=== PATIENT | female | born 1955 | race Caucasian/White ===

== ENCOUNTER 2020-08-01 22:54 | Observation (INO) ==
[2020-08-01 23:38] LABS: Basophils # 0.1 10*3/uL (0.0-0.2); Basophils % 0.9 % (0.0-0.8); Eosinophils # 0.2 10*3/uL (0.0-0.87); Eosinophils % 1.8 % (0.00-10.9); Hematocrit 33.5 VOL% (35.7-47.0); Hemoglobin 10.8 GM/DL (12.0-16.0); Immature Granulocytes % 0.5 %; Immature Granulocytes Absolute 0.04 #; Lymphocytes # 3.3 10*3/uL (1.4-4.0); Lymphocytes % 38.5 % (21.3-54.2); Mean Corpuscular HGB Conc 32.2 GM/DL (32-36); Mean Corpuscular Volume 87.7 FL (87-102); Mean Platelet Volume 10.5 FL (9.6-12.0); Monocytes % 7.9 % (1.7-12.7); Neutrophils % 50.4 % (38.7-73.9); Platelet Count 247 T/CUMM (130-400); Red Blood Count 3.82 MC/CUMM (3.8-5.5); Red Cell Distribution Width 14.5 % (9.3-17.3); White Blood Count 8.4 T/CUMM (4-12)
[2020-08-01 23:55] LABS: Acetaminophen 2.3 UG/ML (10-30); Salicylate < 2.8 MG/DL (2.8-20)
[2020-08-01 23:58] LABS: Alanine Aminotransferase 22 U/L (13-56); Alkaline Phosphatase 87 U/L (45-117); Aspartate Amino Transferase 18 U/L (0-37); Bilirubin,Total < 0.39 MG/DL (0.2-1.0); Blood Urea Nitrogen 38 MG/DL (7-18); Calcium 9.2 MG/DL (8.5-10.1); Estimated Glom Filtration Rate 25 ML/MIN; Glucose 202 MG/DL (74-106); Osmolality,Calculated 271.1 MOS/KG (273-304); Total Protein 7.6 G/DL (6.4-8.3)
[2020-08-02] MEDS ORDERED: SODIUM CHLORIDE 0.9% 1,000 ML IV STA (00:02)
[2020-08-02 00:04] LABS: Barbiturates Screen,Urine Negative (Negative); Benzodiazepines Screen,Urine Negative (Negative); Cannabinoid Screen,Urine Negative (Negative); Opiate Screen,Urine Positive (Negative); Phencyclidine Screen,Urine Negative (Negative)
[2020-08-02] MEDS ORDERED: DEXTROSE 50% 25 GM/50 ML VIAL IV PRN (01:25)
[2020-08-02] MEDS ORDERED: GLUCAGON 1 MG VIAL IM PRN (01:25)
[2020-08-02] MEDS ORDERED: ONDANSETRON 4 MG/2 ML VIAL IV PRN (01:25)
[2020-08-02] MEDS ORDERED: DEXTROSE 50% 25 GM/50 ML SYRINGE IV PRN (01:38)
[2020-08-02] MEDS ORDERED: SODIUM POLYSTYRENE SULFATE 15 GM/60 ML BOTTLE PO STA (02:14)
[2020-08-02] MEDS: SODIUM CHLORIDE 0.9% 1,000 ML IV SCH ×2 (02:53→13:37)
[2020-08-02] MEDS ORDERED: LEVOTHYROXINE 112 MCG TABLET PO SCH (07:00)
[2020-08-02 07:18] LABS: Bilirubin,Urine Negative (Negative); Blood, Urine Negative (Negative); Glucose,Urine (UA) Negative (Negative); Hyaline Casts,Urine 6 /LPF (0-3); Ketones,Urine Negative (Negative); Mucus,Urine Occasional /LPF (Occasional); Nitrite,Urine Negative (Negative); Protein,Urine Negative; RBC,Urine 1 /HPF (0-4); Squamous Epithelial Cell,Urine Occasional /HPF (0-10); Urine Appearance CLEAR (Clear); Urine Color Yellow (Yellow); Urine Specific Gravity 1.012 (1.001-1.035); Urine Urobilinogen < 2.0 EU/DL (0.2-1.0); WBC,Urine 2 /HPF (0-6)
[2020-08-02] MEDS ORDERED: ENOXAPARIN 30 MG/0.3 ML SYRINGE SUBCUT SCH (08:00)
[2020-08-02] MEDS ORDERED: FENOFIBRATE 145 MG TABLET PO SCH (09:00)
[2020-08-02] MEDS: INSULIN REGULAR 100 UNIT/ML SUBCUT SCH ×2 (09:00→11:58)
[2020-08-02] MEDS ORDERED: atenoloL 50 MG TABLET PO SCH (09:00)
[2020-08-02] MEDS ORDERED: PANTOPRAZOLE 40 MG TABLET PO SCH (09:00)
[2020-08-02] MEDS ORDERED: ESCITALOPRAM 10 MG TABLET PO SCH (09:00)
[2020-08-02 09:05] LABS: Alanine Aminotransferase 20 U/L (13-56); Albumin 3.2 G/DL (3.4-5.0); Alkaline Phosphatase 71 U/L (45-117); Aspartate Amino Transferase 15 U/L (0-37); Bilirubin,Total < 0.39 MG/DL (0.2-1.0); Blood Urea Nitrogen 28 MG/DL (7-18); Calcium 8.2 MG/DL (8.5-10.1); Estimated Glom Filtration Rate 40 ML/MIN; Glucose 216 MG/DL (74-106); Osmolality,Calculated 282.1 MOS/KG (273-304); Total Protein 6.4 G/DL (6.4-8.3)
[2020-08-02 13:20] VITALS: BP 105/71
[2020-08-02] MEDS ORDERED: QUEtiapine XR 50 MG TABLET PO SCH (21:00)
== END 2020-08-02 14:47 ==
LOC: EDBD → EDUNIT# → N.ED 22:54 → N.EDINP 22:54
PROVIDERS: ADMIT Family Medicine; ATTEND Family Medicine

== ENCOUNTER 2021-06-02 12:02 | Observation (INO) ==
[2021-06-02] MEDS ORDERED: VANCOMYCIN INJ 1,250 MG in SODIUM CHLORIDE 0.9% 250 ML IV STA (16:07)
[2021-06-02 17:17] LABS: Basophils # 0.1 10*3/uL (0.0-0.2); Basophils % 0.7 % (0.0-0.8); Eosinophils # 0.2 10*3/uL (0.0-0.87); Eosinophils % 2.7 % (0.00-10.9); Hematocrit 36.3 VOL% (35.7-47.0); Hemoglobin 12.6 GM/DL (12.0-16.0); Immature Granulocytes % 0.6 %; Immature Granulocytes Absolute 0.05 #; Lymphocytes # 2.7 10*3/uL (1.4-4.0); Lymphocytes % 31.8 % (21.3-54.2); Mean Corpuscular HGB Conc 34.7 GM/DL (32-36); Mean Corpuscular Volume 92.1 FL (87-102); Mean Platelet Volume 11.4 FL (9.6-12.0); Monocytes % 10.1 % (1.7-12.7); Neutrophils % 54.1 % (38.7-73.9); Platelet Count 225 T/CUMM (130-400); Red Blood Count 3.94 MC/CUMM (3.8-5.5); Red Cell Distribution Width 13.5 % (9.3-17.3); White Blood Count 8.5 T/CUMM (4-12)
[2021-06-02 17:24] LABS: Calcium 9.2 MG/DL (8.5-10.1); Osmolality,Calculated 270.5 MOS/KG (273-304); Potassium 4.2 MMOL/L (3.5-5.1)
[2021-06-02] MEDS ORDERED: hydrALAZINE 20 MG/1 ML VIAL IV PRN (18:23)
[2021-06-02] MEDS ORDERED: ACETAMINOPHEN 325 MG TABLET PO PRN (18:23)
[2021-06-02] MEDS ORDERED: DEXTROSE 50% 25 GM/50 ML VIAL IV PRN ×2 (18:23)
[2021-06-02] MEDS ORDERED: GLUCAGON 1 MG VIAL IM PRN ×2 (18:23)
[2021-06-02] MEDS ORDERED: ONDANSETRON 4 MG/2 ML VIAL IV PRN (18:23)
[2021-06-02] MEDS: PIPERACILLIN/TAZOBACTAM 3,375 MG in SODIUM CHLORIDE 0.9% 100 ML IV SCH (19:35)
[2021-06-02] MEDS: SODIUM CHLORIDE 0.9% 1,000 ML IV SCH (19:35)
[2021-06-02] MEDS ORDERED: SEROQUEL 400 MG PO SCH (21:00)
[2021-06-02] MEDS: INSULIN LISPRO 100 UNIT/ML SUBCUT SCH (22:18)
[2021-06-03] MEDS: VANCOMYCIN INJ 1,000 MG in SODIUM CHLORIDE 0.9% 250 ML IV SCH ×2 (02:47→15:57)
[2021-06-03] MEDS: NICOTINE 21 MG/24 HR PATCH TRANSDERM SCH ×2 (02:59→08:35)
[2021-06-03] MEDS: PIPERACILLIN/TAZOBACTAM 3,375 MG in SODIUM CHLORIDE 0.9% 100 ML IV SCH ×3 (04:51→20:11)
[2021-06-03 06:04] LABS: Basophils # 0.1 10*3/uL (0.0-0.2); Eosinophils # 0.2 10*3/uL (0.0-0.87); Eosinophils % 3.6 % (0.00-10.9); Hematocrit 36.2 VOL% (35.7-47.0); Hemoglobin 11.9 GM/DL (12.0-16.0); Immature Granulocytes % 0.4 %; Immature Granulocytes Absolute 0.02 #; Lymphocytes % 39.3 % (21.3-54.2); Mean Corpuscular HGB Conc 32.9 GM/DL (32-36); Mean Corpuscular Volume 94.5 FL (87-102); Monocytes % 11.2 % (1.7-12.7); Neutrophils % 44.5 % (38.7-73.9); Platelet Count 175 T/CUMM (130-400); Red Blood Count 3.83 MC/CUMM (3.8-5.5); Red Cell Distribution Width 13.7 % (9.3-17.3)
[2021-06-03 06:32] LABS: Albumin 2.9 G/DL (3.4-5.0); Bilirubin,Total 0.4 MG/DL (0.20-1.00); Calcium 8.3 MG/DL (8.5-10.1); Osmolality,Calculated 276.7 MOS/KG (273-304); Potassium 3.9 MMOL/L (3.5-5.1); Total Protein 6.3 G/DL (6.4-8.2)
[2021-06-03] MEDS: INSULIN LISPRO 100 UNIT/ML SUBCUT SCH ×4 (08:31→21:34)
[2021-06-03] MEDS ORDERED: PANTOPRAZOLE 40 MG TABLET PO SCH (09:30)
[2021-06-03] MEDS: LEVOTHYROXINE 112 MCG TABLET PO SCH (10:31)
[2021-06-03] MEDS: SODIUM CHLORIDE 0.9% 1,000 ML IV SCH ×2 (10:33→16:01)
[2021-06-03] MEDS: SUCRALFATE 1 GM/10 ML UDCUP PO SCH (15:57)
[2021-06-03] MEDS ORDERED: CALCIUM CARBONATE CHEW 500 MG TABLET PO PRN (19:37)
[2021-06-03] MEDS ORDERED: INSULIN GLARGINE 100 UNIT/ML SUBCUT SCH (20:00)
[2021-06-03] MEDS: atenoloL 50 MG TABLET PO SCH (20:08)
[2021-06-03] MEDS: OMEPRAZOLE ODT 20 MG TABLET PO SCH (20:09)
[2021-06-03] MEDS ORDERED: QUETIAPINE 400 MG PO SCH (21:00)
[2021-06-04] MEDS: VANCOMYCIN INJ 1,000 MG in SODIUM CHLORIDE 0.9% 250 ML IV SCH (02:13)
[2021-06-04] MEDS: PIPERACILLIN/TAZOBACTAM 3,375 MG in SODIUM CHLORIDE 0.9% 100 ML IV SCH (04:34)
[2021-06-04] MEDS: SODIUM CHLORIDE 0.9% 1,000 ML IV SCH (04:34)
[2021-06-04] MEDS: LEVOTHYROXINE 112 MCG TABLET PO SCH (05:33)
[2021-06-04] MEDS ORDERED: ESCITALOPRAM 10 MG TABLET PO SCH (09:00)
[2021-06-04] MEDS ORDERED: lisinopriL 20 MG TABLET PO SCH (09:00)
[2021-06-04] MEDS: SUCRALFATE 1 GM/10 ML UDCUP PO SCH (09:10)
[2021-06-04] MEDS: INSULIN LISPRO 100 UNIT/ML SUBCUT SCH (09:10)
[2021-06-04] MEDS: atenoloL 50 MG TABLET PO SCH (09:11)
[2021-06-04] MEDS: OMEPRAZOLE ODT 20 MG TABLET PO SCH (09:11)
[2021-06-04] MEDS: NICOTINE 21 MG/24 HR PATCH TRANSDERM SCH (09:29)
[2021-06-04 11:54] VITALS: BP 128/74
== END 2021-06-04 12:14 | disposition home or self-care (01) ==
LOC: N.ED 12:02 → N.EDINP 12:02 → N.3E 22:05
PROVIDERS: ADMIT Internal Medicine; ATTEND Internal Medicine

== ENCOUNTER 2022-12-20 09:05 | Inpatient (IN) ==
[2022-12-20 11:01] LABS: Basophils # 0.1 10*3/uL (0.0-0.2); Basophils % 1.2 % (0.0-0.8); Eosinophils # 0.2 10*3/uL (0.0-0.87); Eosinophils % 2.1 % (0.00-10.9); Hematocrit 42.6 VOL% (35.7-47.0); Hemoglobin 14.4 GM/DL (12.0-16.0); Immature Granulocytes % 0.6 %; Immature Granulocytes Absolute 0.06 #; Lymphocytes # 3.1 10*3/uL (1.4-4.0); Lymphocytes % 30.3 % (21.3-54.2); Mean Corpuscular HGB Conc 33.8 GM/DL (32-36); Mean Corpuscular Volume 94.5 FL (87-102); Mean Platelet Volume 10.6 FL (9.6-12.0); Monocytes # 0.8 10*3/uL (0.11-0.8); Monocytes % 8.1 % (1.7-12.7); Neutrophils % 57.7 % (38.7-73.9); Platelet Count 230 T/CUMM (130-400); Red Blood Count 4.51 MC/CUMM (3.8-5.5); Red Cell Distribution Width 12.8 % (9.3-17.3); White Blood Count 10.19 T/CUMM (4-12)
[2022-12-20 11:05] LABS: Mucus,Urine Occasional /LPF (Occasional); RBC,Urine 2 /HPF (0-4); Squamous Epithelial Cell,Urine Occasional /HPF (0-10)
[2022-12-20 11:06] LABS: Bilirubin,Urine Negative (Negative); Blood, Urine Trace mg/dL (Negative); Glucose,Urine (UA) 250 mg/dL (Negative); Ketones,Urine Negative (Negative); Nitrite,Urine Negative (Negative); Protein,Urine Negative (Negative); Urine Appearance Clear (Clear); Urine Color Yellow (Yellow); Urine Urobilinogen 0.2 eU/dL (<2.0); Urine pH 5.5 (4.5-8.0)
[2022-12-20 11:11] LABS: Barbiturates Screen,Urine Negative (Negative); Benzodiazepines Screen,Urine Negative (Negative); Cannabinoid Screen,Urine Negative (Negative); Opiate Screen,Urine Negative (Negative); Phencyclidine Screen,Urine Negative (Negative)
[2022-12-20 11:25] LABS: Alanine Aminotransferase 29 U/L (13-56); Albumin 4.2 G/DL (3.4-5.0); Alkaline Phosphatase 82 U/L (45-117); Aspartate Amino Transferase 20 U/L (0-37); Bilirubin,Total < 0.39 MG/DL (0.20-1.00); Blood Urea Nitrogen 17 MG/DL (7-18); Calcium 9.4 MG/DL (8.5-10.1); Carbon Dioxide 29 MMOL/L (21-32); Chloride 101 MMOL/L (98-107); Glucose 155 MG/DL (74-106); Osmolality,Calculated 277.8 MOS/KG (273-304); Potassium 3.6 MMOL/L (3.5-5.1); Sodium 137 MMOL/L (136-145); Total Protein 7.7 G/DL (6.4-8.2)
[2022-12-20] MEDS ORDERED: CLOPIDOGREL 75 MG TABLET PO STA (12:27)
[2022-12-20] MEDS ORDERED: ASPIRIN CHEW 81 MG TABLET PO STA (12:27)
[2022-12-20] MEDS ORDERED: ONDANSETRON 4 MG/2 ML VIAL IV PRN (12:38)
[2022-12-20] MEDS ORDERED: ACETAMINOPHEN 325 MG TABLET PO PRN (12:38)
[2022-12-20] MEDS ORDERED: GLUCAGON 1 MG VIAL IM PRN (12:38)
[2022-12-20] MEDS ORDERED: DEXTROSE 10% 250 ML BAG IV PRN (12:48)
[2022-12-20] MEDS ORDERED: cloNIDine 0.1 MG TABLET PO ONE (17:42)
[2022-12-20] MEDS: INSULIN REGULAR 100 UNIT/ML SUBCUT SCH (18:07)
[2022-12-20] MEDS: SODIUM CHLORIDE 0.9% 1,000 ML IV SCH (18:10)
[2022-12-20] MEDS ORDERED: NICOTINE 14 MG/24 HR PATCH TRANSDERM PRN (20:00)
[2022-12-20] MEDS: SIMVASTATIN 20 MG TABLET PO SCH (22:03)
[2022-12-20] MEDS: DOCUSATE SODIUM 100 MG CAPSULE PO SCH (22:03)
[2022-12-20] MEDS: cloNIDine 0.1 MG TABLET PO SCH (22:03)
[2022-12-21] MEDS ORDERED: QUEtiapine XR 50 MG TABLET PO SCH (03:15)
[2022-12-21 05:25] LABS: Risk Ratio 4.45; VLDL Cholesterol 25.6 MG/DL
[2022-12-21] MEDS: DOCUSATE SODIUM 100 MG CAPSULE PO SCH ×2 (09:51→20:38)
[2022-12-21] MEDS: cloNIDine 0.1 MG TABLET PO SCH ×2 (09:51→20:38)
[2022-12-21] MEDS: INSULIN REGULAR 100 UNIT/ML SUBCUT SCH ×2 (09:51→16:37)
[2022-12-21] MEDS: PANTOPRAZOLE 40 MG TABLET PO SCH (09:51)
[2022-12-21] MEDS: ASPIRIN EC 81 MG TABLET PO SCH (09:51)
[2022-12-21] MEDS: CLOPIDOGREL 75 MG TABLET PO SCH (09:52)
[2022-12-21] MEDS: SODIUM CHLORIDE 0.9% 1,000 ML IV SCH ×2 (11:44→20:41)
[2022-12-21] MEDS: LEVOTHYROXINE 112 MCG TABLET PO SCH (14:02)
[2022-12-21] MEDS: FENOFIBRATE 160 MG TABLET PO SCH (14:02)
[2022-12-21] MEDS: lisinopriL 20 MG TABLET PO SCH (14:02)
[2022-12-21] MEDS: atenoloL 50 MG TABLET PO SCH ×2 (14:03→20:38)
[2022-12-21] MEDS: PREGABALIN 100 MG CAPSULE PO SCH ×2 (14:03→20:38)
[2022-12-21] MEDS: traMADol 50 MG TABLET PO PRN (14:03)
[2022-12-21] MEDS: QUEtiapine XR 50 MG TABLET PO SCH (17:28)
[2022-12-21] MEDS: metFORMIN 500 MG TABLET PO SCH (17:29)
[2022-12-21] MEDS: SIMVASTATIN 20 MG TABLET PO SCH (20:38)
[2022-12-21] MEDS: INSULIN GLARGINE 100 UNIT/ML SUBCUT SCH (20:38)
[2022-12-22 04:45] LABS: Calcium 8.6 MG/DL (8.5-10.1); Osmolality,Calculated 281.5 MOS/KG (273-304); Potassium 3.8 MMOL/L (3.5-5.1)
[2022-12-22] MEDS: LEVOTHYROXINE 112 MCG TABLET PO SCH (05:32)
[2022-12-22] MEDS: INSULIN REGULAR 100 UNIT/ML SUBCUT SCH ×2 (07:57→16:43)
[2022-12-22] MEDS: metFORMIN 500 MG TABLET PO SCH ×2 (09:21→16:45)
[2022-12-22] MEDS: FENOFIBRATE 160 MG TABLET PO SCH (09:21)
[2022-12-22] MEDS: PANTOPRAZOLE 40 MG TABLET PO SCH (09:21)
[2022-12-22] MEDS: ASPIRIN EC 81 MG TABLET PO SCH (09:22)
[2022-12-22] MEDS: PREGABALIN 100 MG CAPSULE PO SCH ×2 (09:22→20:32)
[2022-12-22] MEDS: lisinopriL 20 MG TABLET PO SCH (09:23)
[2022-12-22] MEDS: atenoloL 50 MG TABLET PO SCH ×2 (09:23→20:33)
[2022-12-22] MEDS: cloNIDine 0.1 MG TABLET PO SCH ×2 (09:24→20:33)
[2022-12-22] MEDS: DOCUSATE SODIUM 100 MG CAPSULE PO SCH ×2 (09:24→20:33)
[2022-12-22] MEDS: CLOPIDOGREL 75 MG TABLET PO SCH (09:25)
[2022-12-22] MEDS: SODIUM CHLORIDE 0.9% 1,000 ML IV SCH (13:50)
[2022-12-22] MEDS: QUEtiapine XR 50 MG TABLET PO SCH (18:05)
[2022-12-22] MEDS: SIMVASTATIN 20 MG TABLET PO SCH (20:33)
[2022-12-22] MEDS: INSULIN GLARGINE 100 UNIT/ML SUBCUT SCH (20:35)
[2022-12-23] MEDS: SODIUM CHLORIDE 0.9% 1,000 ML IV SCH (01:02)
[2022-12-23] MEDS: LEVOTHYROXINE 112 MCG TABLET PO SCH (05:38)
[2022-12-23] MEDS: INSULIN REGULAR 100 UNIT/ML SUBCUT SCH ×2 (09:27→16:56)
[2022-12-23] MEDS: metFORMIN 500 MG TABLET PO SCH ×2 (09:35→17:49)
[2022-12-23] MEDS: lisinopriL 20 MG TABLET PO SCH (09:35)
[2022-12-23] MEDS: ASPIRIN EC 81 MG TABLET PO SCH (09:35)
[2022-12-23] MEDS: PANTOPRAZOLE 40 MG TABLET PO SCH (09:35)
[2022-12-23] MEDS: cloNIDine 0.1 MG TABLET PO SCH ×2 (09:35→21:47)
[2022-12-23] MEDS: PREGABALIN 100 MG CAPSULE PO SCH ×2 (09:35→21:47)
[2022-12-23] MEDS: atenoloL 50 MG TABLET PO SCH ×2 (09:35→21:47)
[2022-12-23] MEDS: FENOFIBRATE 160 MG TABLET PO SCH (09:35)
[2022-12-23] MEDS: CLOPIDOGREL 75 MG TABLET PO SCH (09:35)
[2022-12-23] MEDS: DOCUSATE SODIUM 100 MG CAPSULE PO SCH ×2 (09:35→21:47)
[2022-12-23] MEDS: traMADol 50 MG TABLET PO PRN (12:17)
[2022-12-23] MEDS: QUEtiapine XR 50 MG TABLET PO SCH (17:50)
[2022-12-23] MEDS: SIMVASTATIN 20 MG TABLET PO SCH (21:47)
[2022-12-23] MEDS: INSULIN GLARGINE 100 UNIT/ML SUBCUT SCH (21:50)
[2022-12-24] MEDS: LEVOTHYROXINE 112 MCG TABLET PO SCH (06:37)
[2022-12-24] MEDS: INSULIN REGULAR 100 UNIT/ML SUBCUT SCH ×2 (08:15→16:53)
[2022-12-24] MEDS ORDERED: lisinopriL 20 MG TABLET PO SCH (09:00)
[2022-12-24] MEDS: cloNIDine 0.1 MG TABLET PO SCH (10:52)
[2022-12-24] MEDS: ASPIRIN EC 81 MG TABLET PO SCH (10:52)
[2022-12-24] MEDS: metFORMIN 500 MG TABLET PO SCH ×2 (10:52→18:41)
[2022-12-24] MEDS: DOCUSATE SODIUM 100 MG CAPSULE PO SCH (10:52)
[2022-12-24] MEDS: atenoloL 50 MG TABLET PO SCH (10:54)
[2022-12-24] MEDS: PREGABALIN 100 MG CAPSULE PO SCH (10:54)
[2022-12-24] MEDS: CLOPIDOGREL 75 MG TABLET PO SCH (10:54)
[2022-12-24] MEDS: FENOFIBRATE 160 MG TABLET PO SCH (10:54)
[2022-12-24] MEDS: PANTOPRAZOLE 40 MG TABLET PO SCH (10:54)
[2022-12-24] MEDS: QUEtiapine XR 50 MG TABLET PO SCH (18:41)
[2022-12-24 19:08] VITALS: BP 154/77
== END 2022-12-24 20:20 | disposition home health service (06) | DRG 64 ==
LOC: EDBD → EDUNIT# → N.EDINP 09:05 → N.ED 09:05 → N.EDINP 15:40 → N.TELES 15:53
PROVIDERS: ADMIT Internal Medicine; ATTEND Internal Medicine

== ENCOUNTER 2022-12-29 13:07 | Observation (INO) ==
[2022-12-29] MEDS ORDERED: SODIUM CHLORIDE 0.9% 500 ML IV STA (13:51)
[2022-12-29 14:45] LABS: Basophils # 0.1 10*3/uL (0.0-0.2); Basophils % 1.3 % (0.0-0.8); Eosinophils # 0.2 10*3/uL (0.0-0.87); Eosinophils % 2.4 % (0.00-10.9); Hematocrit 34.2 VOL% (35.7-47.0); Hemoglobin 12.1 GM/DL (12.0-16.0); Immature Granulocytes % 0.9 %; Immature Granulocytes Absolute 0.06 #; Lymphocytes # 2.6 10*3/uL (1.4-4.0); Mean Corpuscular HGB Conc 35.4 GM/DL (32-36); Mean Corpuscular Volume 92.2 FL (87-102); Monocytes # 0.8 10*3/uL (0.11-0.8); Monocytes % 10.8 % (1.7-12.7); Neutrophils % 47.6 % (38.7-73.9); Platelet Count 197 T/CUMM (130-400); Red Blood Count 3.71 MC/CUMM (3.8-5.5); Red Cell Distribution Width 12.4 % (9.3-17.3); White Blood Count 7.05 T/CUMM (4-12)
[2022-12-29 15:10] LABS: Alanine Aminotransferase 32 U/L (13-56); Albumin 3.8 G/DL (3.4-5.0); Alkaline Phosphatase 65 U/L (45-117); Aspartate Amino Transferase 32 U/L (0-37); Bilirubin,Total < 0.39 MG/DL (0.20-1.00); Blood Urea Nitrogen 15 MG/DL (7-18); Calcium 9.4 MG/DL (8.5-10.1); Carbon Dioxide 31 MMOL/L (21-32); Chloride 100 MMOL/L (98-107); Glucose 154 MG/DL (74-106); Potassium 4.8 MMOL/L (3.5-5.1); Sodium 136 MMOL/L (136-145); Total Protein 6.8 G/DL (6.4-8.2)
[2022-12-29] MEDS ORDERED: ONDANSETRON 4 MG/2 ML VIAL IV PRN (16:02)
[2022-12-29] MEDS ORDERED: ACETAMINOPHEN 325 MG TABLET PO PRN (16:02)
[2022-12-29 16:30] LABS: Barbiturates Screen,Urine Negative (Negative); Benzodiazepines Screen,Urine Negative (Negative); Cannabinoid Screen,Urine Negative (Negative); Opiate Screen,Urine Negative (Negative); Phencyclidine Screen,Urine Negative (Negative)
[2022-12-29] MEDS ORDERED: DOCUSATE SODIUM 100 MG CAPSULE PO SCH (21:00)
[2022-12-30] MEDS ORDERED: CETIRIZINE 10 MG TABLET PO PRN (07:43)
[2022-12-30] MEDS ORDERED: traMADol 50 MG TABLET PO PRN (07:43)
[2022-12-30] MEDS ORDERED: DEXTROSE 10% 250 ML BAG IV PRN (07:47)
[2022-12-30] MEDS ORDERED: GLUCAGON 1 MG VIAL IM PRN (07:47)
[2022-12-30] MEDS: CLOPIDOGREL 75 MG TABLET PO SCH (08:32)
[2022-12-30] MEDS: FENOFIBRATE 160 MG TABLET PO SCH (08:32)
[2022-12-30] MEDS: amLODIPine 2.5 MG TABLET PO SCH (08:32)
[2022-12-30] MEDS: CHLORTHALIDONE 25 MG TABLET PO SCH (08:32)
[2022-12-30] MEDS: PREGABALIN 100 MG CAPSULE PO SCH ×2 (08:33→21:36)
[2022-12-30] MEDS: lisinopriL 20 MG TABLET PO SCH (08:33)
[2022-12-30] MEDS: atenoloL 25 MG TABLET PO SCH ×2 (08:33→21:36)
[2022-12-30] MEDS: LEVOTHYROXINE 112 MCG TABLET PO SCH (08:33)
[2022-12-30] MEDS: ESCITALOPRAM 10 MG TABLET PO SCH (08:33)
[2022-12-30] MEDS: DOCUSATE SODIUM 100 MG CAPSULE PO SCH ×2 (08:34→21:37)
[2022-12-30] MEDS: ASPIRIN CHEW 81 MG TABLET PO SCH (08:34)
[2022-12-30] MEDS: PANTOPRAZOLE 40 MG TABLET PO SCH (08:34)
[2022-12-30] MEDS: metFORMIN 500 MG TABLET PO SCH ×2 (08:34→16:21)
[2022-12-30] MEDS: ACYCLOVIR 200 MG CAPSULE PO SCH ×3 (08:35→21:37)
[2022-12-30] MEDS ORDERED: atenoloL 50 MG TABLET PO SCH (09:00)
[2022-12-30] MEDS: INSULIN LISPRO 100 UNIT/ML SUBCUT SCH ×3 (11:42→21:38)
[2022-12-30] MEDS ORDERED: INSULIN GLARGINE 100 UNIT/ML SUBCUT SCH (21:00)
[2022-12-30] MEDS ORDERED: SIMVASTATIN 20 MG TABLET PO SCH (21:00)
[2022-12-30] MEDS ORDERED: QUETIAPINE 400 MG PO SCH (21:00)
[2022-12-31] MEDS: INSULIN LISPRO 100 UNIT/ML SUBCUT SCH ×3 (08:03→15:32)
[2022-12-31] MEDS: amLODIPine 2.5 MG TABLET PO SCH (08:27)
[2022-12-31] MEDS: CLOPIDOGREL 75 MG TABLET PO SCH (08:27)
[2022-12-31] MEDS: CHLORTHALIDONE 25 MG TABLET PO SCH (08:27)
[2022-12-31] MEDS: LEVOTHYROXINE 112 MCG TABLET PO SCH (08:28)
[2022-12-31] MEDS: ESCITALOPRAM 10 MG TABLET PO SCH (08:28)
[2022-12-31] MEDS: atenoloL 25 MG TABLET PO SCH (08:28)
[2022-12-31] MEDS: lisinopriL 20 MG TABLET PO SCH (08:28)
[2022-12-31] MEDS: DOCUSATE SODIUM 100 MG CAPSULE PO SCH (08:29)
[2022-12-31] MEDS: ASPIRIN CHEW 81 MG TABLET PO SCH (08:29)
[2022-12-31] MEDS: PREGABALIN 100 MG CAPSULE PO SCH (08:29)
[2022-12-31] MEDS: ACYCLOVIR 200 MG CAPSULE PO SCH ×2 (08:29→15:30)
[2022-12-31] MEDS: PANTOPRAZOLE 40 MG TABLET PO SCH (08:29)
[2022-12-31] MEDS: metFORMIN 500 MG TABLET PO SCH ×2 (08:30→16:18)
[2022-12-31] MEDS: FENOFIBRATE 160 MG TABLET PO SCH (08:35)
[2022-12-31 15:44] VITALS: BP 126/60
== END 2022-12-31 16:40 | disposition home health service (06) ==
LOC: N.EDINP 13:07 → N.ED 13:07 → N.2W 16:55
PROVIDERS: ADMIT Internal Medicine; ATTEND Internal Medicine